=== PATIENT | male | born 1940 | race Caucasian/White ===

== ENCOUNTER 2021-06-10 06:59 | Day surgery (SDC) | payer OTHER ==
[2021-06-04 11:29] VITALS: BMI 25.0
[2021-06-10] MEDS ORDERED: LIDOCAINE 1% P/F 10 MG/ML VIAL ONE (07:11)
[2021-06-10] MEDS ORDERED: EPINEPHrine/PF 1 MG/1 ML (1:1,000) AMPULE ONE (07:11)
[2021-06-10] MEDS ORDERED: TETRACAINE 0.5% OPHTH SOLN 2 ML BOTTLE ONE (07:11)
[2021-06-10] MEDS ORDERED: BSS (NA/CA/MG/K) BALANCED SALT SOLUTION OPHTH SOLN 15 ML BOTTLE ONE (07:11)
[2021-06-10] MEDS ORDERED: CARBACHOL 0.01% INTRA-OCULAR 1.5 ML VIAL ONE (07:12)
[2021-06-10] MEDS ORDERED: NEO/POLYMYX B SULF/DEXAMETH OPHTHALMIC 5ML BOTTLE ONE (07:12)
[2021-06-10] MEDS: PHENYLEPHRINE 2.5% OPHTH SOLN 15 ML BOTTLE ONE ×3 (07:25→07:35)
[2021-06-10] MEDS: TROPICAMIDE 1% OPHTH SOLN 15 ML BOTTLE ONE ×3 (07:25→07:35)
[2021-06-10] MEDS: CIPROFLOXACIN 0.3% EYE DROPS 5 ML BOTTLE ONE ×3 (07:25→07:35)
[2021-06-10] MEDS: CYCLOPENTOLATE 2% OPHTH SOLN 2 ML BOTTLE ONE ×3 (07:25→07:35)
[2021-06-10] MEDS ORDERED: SUCCINYLCHOLINE CHLORIDE 200 MG/10 ML SYRINGE ONE (07:54)
[2021-06-10] MEDS ORDERED: MIDAZOLAM HCL 2 MG/2 ML SINGLE DOSE VIAL ONE (07:54)
[2021-06-10] MEDS ORDERED: PROPOFOL 20 ML ONE (07:54)
[2021-06-10] MEDS ORDERED: TRYPAN BLUE 0.5 ML DISP.SYRIN ONE (08:02)
[2021-06-10 09:04] VITALS: TEMP 97.8
[2021-06-10 09:20] VITALS: BP 132/60; PULSE 62
== END 2021-06-10 09:10 | disposition home or self-care (01) ==
LOC: FASU 06:59
PROVIDERS: ATTEND Ophthalmology
PROC: 08RK3JZ Replacement of Left Lens with Synthetic Substitute, Percutaneous Approach (ICD-10-PCS; principal; 2021-06-10 08:13)
DX: H26.8 Other specified cataract (principal); H21.542 Posterior synechiae (iris), left eye

== ENCOUNTER 2021-07-01 06:44 | Day surgery (SDC) | payer OTHER ==
[2021-06-26 11:50] VITALS: BMI 25.0
[2021-07-01] MEDS: PHENYLEPHRINE 2.5% OPHTH SOLN 15 ML BOTTLE ONE ×3 (06:50→07:00)
[2021-07-01] MEDS: CIPROFLOXACIN 0.3% EYE DROPS 5 ML BOTTLE ONE ×3 (06:50→07:00)
[2021-07-01] MEDS: TROPICAMIDE 1% OPHTH SOLN 15 ML BOTTLE ONE ×3 (06:50→07:00)
[2021-07-01] MEDS: CYCLOPENTOLATE 2% OPHTH SOLN 2 ML BOTTLE ONE ×3 (06:50→07:00)
[2021-07-01] MEDS ORDERED: LIDOCAINE 1% P/F 10 MG/ML VIAL ONE (07:18)
[2021-07-01] MEDS ORDERED: TETRACAINE 0.5% OPHTH SOLN 2 ML BOTTLE ONE ×2 (07:18→08:14)
[2021-07-01] MEDS ORDERED: EPINEPHrine/PF 1 MG/1 ML (1:1,000) AMPULE ONE (07:18)
[2021-07-01] MEDS ORDERED: CARBACHOL 0.01% INTRA-OCULAR 1.5 ML VIAL ONE (07:20)
[2021-07-01] MEDS ORDERED: BSS (NA/CA/MG/K) BALANCED SALT SOLUTION OPHTH SOLN 15 ML BOTTLE ONE (07:20)
[2021-07-01] MEDS ORDERED: NEO/POLYMYX B SULF/DEXAMETH OPHTHALMIC 5ML BOTTLE ONE (07:20)
[2021-07-01 07:31] VITALS: TEMP 97.8
[2021-07-01] MEDS ORDERED: MIDAZOLAM HCL 2 MG/2 ML SINGLE DOSE VIAL ONE (07:52)
[2021-07-01] MEDS ORDERED: SUCCINYLCHOLINE CHLORIDE 200 MG/10 ML SYRINGE ONE (07:52)
[2021-07-01] MEDS ORDERED: PROPOFOL 20 ML ONE (07:52)
[2021-07-01 09:21] VITALS: BP 131/74; PULSE 62
== END 2021-07-01 09:15 | disposition home or self-care (01) ==
LOC: FASU 06:44
PROVIDERS: ATTEND Ophthalmology
PROC: 08RJ3JZ Replacement of Right Lens with Synthetic Substitute, Percutaneous Approach (ICD-10-PCS; principal; 2021-07-01 08:17)
DX: H26.8 Other specified cataract (principal)

== ENCOUNTER 2022-02-21 14:10 | Emergency (ER) | payer OTHER ==
[2022-02-21 14:23] VITALS: BP 145/80; PULSE 85; TEMP 98.5; BMI 24.9
[2022-02-21] MEDS ORDERED: NAPROXEN 375 MG TABLET PO ONE (14:36)
[2022-02-21 15:08] LABS: HEMATOCRIT 37.6 % (35.4-49); HEMOGLOBIN 13.4 G/dL (11.7-16.9); MCH 28.5 pg (25.7-33.7); MCHC 35.6 g/dl (32.0-35.9); PLATELET COUNT 238.3 10^3/uL (134-434); RDW 14.5 % (11.9-15.9); WHITE BLOOD COUNT 7.7 10^3/uL (4.0-10.8)
[2022-02-21 15:25] LABS: ALBUMIN 3.4 g/dl (3.4-5.0); CALCIUM 9.6 mg/dl (8.5-10); CREATININE 1.1 mg/dl (0.55-1.3); TOT PROT 6.3 g/dl (6.4-8.2)
[2022-02-21] MEDS ORDERED: POTASSIUM CHLORIDE TABS 20 MEQ TABLET.ER (FP) PO ONE ×2 (15:28→15:41)
[2022-02-21 17:52] LABS: INR 1.21 (0.83-1.09); PROTHROMBIN TIME (PATIENT) 13.9 SEC (9.7-13.0)
[2022-02-21 17:55] LABS: ACTIVATED PTT 33.5 SECONDS (25.2-36.5)
[2022-02-22 19:29] LABS: BF WBC & OTHER NUCLEATED CELLS 4846 /mm3; BODY FLUID MESOTHELIAL 10 %; BODY FLUID MONOCYTE 17 %
[2022-02-22 19:31] LABS: BODY FLUID MACROPHAGES 3 %
[2022-02-24 14:10] LABS: BODY FLUID ALBUMIN 3.1 g/dL (Not Estab.)
== END 2022-02-21 17:58 | disposition home or self-care (01) ==
LOC: FER 14:10
DX: J90 Pleural effusion, not elsewhere classified (principal)
CPT/HCPCS: 0241U-QW; 36415; 71046-TC-FY; 71250-TC; 80053; 81003; 82042; 82150; 82465; 82945; 83615; 83986; 84157; 84478; 84484; 85027; 85610; 85730; 87070; 87075; 87102; 87116; 87205; 87206; 87210; 93005; 99285-25

== ENCOUNTER 2022-02-22 10:53 | Day surgery (SDC) | payer OTHER ==
[2022-02-22 12:12] VITALS: BMI 25.9
[2022-02-22 15:42] VITALS: TEMP 97.1
[2022-02-22 17:08] VITALS: BP 120/70; PULSE 70
== END 2022-02-22 16:00 | disposition home or self-care (01) ==
LOC: JRADIR 10:53
PROVIDERS: ATTEND Internal Medicine Pulmonary Disease
PROC: 0W9B3ZZ Drainage of Left Pleural Cavity, Percutaneous Approach (ICD-10-PCS; principal; 2022-02-22)
DX: J90 Pleural effusion, not elsewhere classified (principal)
CPT/HCPCS: 32555; 71045-TC-FY; 76942; 88108; 88305-TC